=== PATIENT | female | born 1990 | race Caucasian/White ===

== ENCOUNTER 2017-07-16 20:48 | Emergency (ER) | payer MEDICAID ==
[~2017-07-16] VITALS: Ht 175.3 cm; Wt 145.0 kg
[2017-07-16] MEDS ORDERED: PREN-134 PO (21:56)
[2017-07-16] MEDS ORDERED: aspirin PO (23:04)
[2017-07-16 23:05] VITALS: BP 140/74
== END 2017-07-16 23:50 | disposition home or self-care (01) ==
LOC: EMS 20:49
DX: O9A.212 Injury, poisoning and certain other consequences of external causes complicating pregnancy, second trimester (principal); S83.92XA Sprain of unspecified site of left knee, initial encounter; Z79.82 Long term (current) use of aspirin; Z3A.22 22 weeks gestation of pregnancy; V03.99XA Pedestrian with other conveyance injured in collision with car, pick-up truck or van, unspecified whether traffic or nontraffic accident, initial encounter; Y93.89 Activity, other specified; Y92.488 Other paved roadways as the place of occurrence of the external cause; Y99.8 Other external cause status
CPT/HCPCS: 99283

== ENCOUNTER 2017-07-16 21:00 | Observation (INO) | payer MEDICAID ==
[~2017-07-16] VITALS: Ht 175.3 cm; Wt 144.7 kg
[2017-07-16] MEDS ORDERED: PREN-134 PO (21:56)
[2017-07-16 22:46] LABS: BASOPHILS % (AUTO) 0.5 % (0.0-2.0); HEMOGLOBIN 10.9 g/dL (12.0-16.0); MONOCYTES # (AUTO) 0.5 K/uL (0.1-1.0)
[2017-07-16 22:48] LABS: EOSINOPHILS % (AUTO) 2.8 % (1.0-6.0); HEMATOCRIT 30.1 % (36-46); LYMPHOCYTES # (AUTO) 2.6 K/uL (1.0-4.8); LYMPHOCYTES % (AUTO) 41.4 % (22.0-44.0); MEAN CORPUSCULAR HEMOGLOBIN 30.7 pg (26.0-34.0); MEAN CORPUSCULAR HGB CONC 36.2 G/dL (31.0-37.0); MEAN CORPUSCULAR VOLUME 85 fL (80-100); MONOCYTES % (AUTO) 7.8 % (2.0-9.0); NEUTROPHILS % (AUTO) 47.5 % (40.0-70.0); PLATELET COUNT (AUTO)-OB 171 K/uL (150-450); RED BLOOD CELL COUNT(AUTO) 3.54 MIL/uL (4.00-5.20); RED CELL DISTRIBUTION WIDTH 13.4 % (11.5-14.5)
[2017-07-16 23:00] VITALS: BP 128/61
[2017-07-16] MEDS ORDERED: aspirin PO (23:04)
[2017-07-16 23:37] LABS: APPEARANCE,URINE SLIGHTLY CLOUDY (CLEAR); PH,URINE 5.5 (5.0-8.0); PROTEIN,URINE POS 1+ (NEGATIVE)
[2017-07-16 23:38] LABS: BILIRUBIN,URINE PRELIM. POSITIVE (NEGATIVE); GLUCOSE, URINE (UA) NEGATIVE (NEGATIVE); KETONES,URINE TRACE mg/dL (NEGATIVE); LEUKOCYTE ESTERASE ,URINE SMALL (NEGATIVE); NITRATE,URINE NEGATIVE (NEGATIVE); OCCULT BLOOD,URINE NEGATIVE (NEGATIVE); UROBILINOGEN,URINE 0.2 mg/dL (<=1.0)
[2017-07-16 23:39] LABS: RBC,URINE 0-2 /HPF (0-2)
[2017-07-16 23:40] LABS: BACTERIA,URINE Few /HPF (None Seen); CALCIUM OXALATE CRYSTALS,UR Moderate /LPF (None Seen); SQUAMOUS EPITHELIAL CELL,UR Moderate /LPF (None Seen)
[2017-07-17] MEDS ORDERED: ACETAMINOPHEN 500 MG TABLET PO PRN (01:00)
== END 2017-07-17 07:25 | disposition home or self-care (01) ==
LOC: 4S 21:00
PROVIDERS: ADMIT Obstetrics & Gynecology; ATTEND Obstetrics & Gynecology
DX: O9A.212 Injury, poisoning and certain other consequences of external causes complicating pregnancy, second trimester (principal); S79.912A Unspecified injury of left hip, initial encounter; S89.92XA Unspecified injury of left lower leg, initial encounter; Z3A.23 23 weeks gestation of pregnancy; V03.99XA Pedestrian with other conveyance injured in collision with car, pick-up truck or van, unspecified whether traffic or nontraffic accident, initial encounter; Y92.412 Parkway as the place of occurrence of the external cause; Y93.89 Activity, other specified; Y99.8 Other external cause status
CPT/HCPCS: 36415; 59025; 76805; 80307 ×8; 81001; 85025; 86850; 86900; 86901; 87086; G0378 ×2